=== PATIENT | male | born 1935 | race Caucasian/White ===

== ENCOUNTER → 2018-08-02 | Outpatient (CLI) | payer MEDICARE, BC | END | disposition home or self-care (01) | LOC: HKI 12:45 | DX: R22.42 Localized swelling, mass and lump, left lower limb (principal); I25.10 Atherosclerotic heart disease of native coronary artery without angina pectoris; N40.0 Benign prostatic hyperplasia without lower urinary tract symptoms; N20.0 Calculus of kidney; M10.9 Gout, unspecified; B19.20 Unspecified viral hepatitis C without hepatic coma | CPT/HCPCS: 73564; 73564-50 ==